=== PATIENT | female | born 1985 | race American Indian/Alaskan Native ===

== ENCOUNTER 2018-12-15 22:44 | Emergency (ER) | payer BC, OTHER ==
[2018-12-15 22:44] VITALS: BMI 18.8
--- NOTE | 2018-12-15 23:34 | ED PDOC ---
HPI: Female Pain Time Seen by Provider: 12/15/18 23:15 Chief Complaint (Nursing): Female Genitourinary Chief Complaint (Provider): dysuria History Per: Patient History/Exam Limitations: no limitations Onset/Duration Of Symptoms: Days (3) Current Symptoms Are (Timing): Still Present Quality Of Discomfort: Burning, "Pain" Associated Symptoms: Urinary Symptoms Additional Complaint(s): 33 y/o female presents for evaluation of dysuria x 3 days. Associated low back pain, hematuria yesterday. Denies fever, nausea/vomiting, vaginal bleeding/discharge. No medications taken for relief thus far Past Medical History Reviewed: Historical Data, Nursing Documentation, Vital Signs Vital Signs: Last Vital Signs Temp 98.6 F 12/15/18 22:52 Pulse 77 12/15/18 22:52 Resp 16 12/15/18 22:52 BP 130/84 12/15/18 22:52 Pulse Ox 98 12/15/18 22:52 - Medical History PMH: No Chronic Diseases - Surgical History Surgical History: No Surg Hx - Family History Family History: States: Unknown Family Hx - Immunization History Hx Tetanus Toxoid Vaccination: No Hx Influenza Vaccination: No Hx Pneumococcal Vaccination: No - Home Medications Home Medications: Ambulatory Orders Medication Instructions Recorded Acetaminophen/Butalbital/Caf 1 tab PO TID PRN #14 tab 11/14/16 [Fioricet] Ferrous Gluconate [Iron] 236 mg PO DAILY 11/14/16 Ciprofloxacin HCl [Cipro] 500 mg PO BID #13 tab 12/16/18 Phenazopyridine HCl [Pyridium] 100 mg PO TID PRN #5 tab 12/16/18 - Allergies Allergies/Adverse Reactions: Allergies Allergy/AdvReac Type Severity Reaction Status Date / Time No Known Allergies Allergy Verified 12/15/18 22:52 Review of Systems ROS Statement: Except As Marked, All Systems Reviewed And Found Negative Genitourinary Female: Positive for: Dysuria, Hematuria Physical Exam - Reviewed Nursing Documentation Reviewed: Yes Vital Signs Reviewed: Yes - Physical Exam Appears: Positive for: Well, Non-toxic, No Acute Distress Head Exam: Positive for: ATRAUMATIC, NORMAL INSPECTION, NORMOCEPHALIC Skin: Positive for: Normal Color Eye Exam: Positive for: Normal appearance ENT: Positive for: Normal ENT Inspection Cardiovascular/Chest: Positive for: Regular Rate, Rhythm Respiratory: Positive for: Normal Breath Sounds Gastrointestinal/Abdominal: Positive for: Bowel Sounds, Soft, Tenderness (suprapubic) Back: Positive for: Normal Inspection. Negative for: L CVA Tenderness, R CVA Tenderness Extremity: Positive for: Normal ROM Neurological/Psych: Positive for: Awake, Alert, Oriented (x3) - ECG O2 Sat by Pulse Oximetry: 98 - Progress ED Course And Treament: -upreg -udip -urinalysis -urine c&s Patient educated on findings, discharged with rx pyridium, cipro (doses given in ED) Advised increase fluid intake Follow up PMD within 2-3 days Return precautions given Disposition - Clinical Impression Clinical Impression: Urinary tract infection - Patient ED Disposition Is Patient to be Admitted: No Counseled Patient/Family Regarding: Studies Performed, Diagnosis, Need For Followup, Rx Given - Disposition Disposition: Routine/Home Disposition Time: 00:23 Condition: IMPROVED Prescriptions: Ciprofloxacin HCl [Cipro] 500 mg PO BID #13 tab Phenazopyridine HCl [Pyridium] 100 mg PO TID PRN #5 tab PRN Reason: Urinary Discomt Instructions: Urinary Tract Infections in Adults
[2018-12-15 23:49] LABS: SQUAMOUS EPITHIAL 4 /hpf (0-5); URINE BILIRUBIN NEGATIVE (NEGATIVE); URINE BLOOD LARGE (NEGATIVE); URINE CLARITY CLOUDY (Clear); URINE COLOR YELLOW (YELLOW); URINE GLUCOSE (UA) NEG (NEGATIVE); URINE LEUKOCYTE ESTERASE SMALL Leu/uL (Negative); URINE PROTEIN 30 mg/dL (NEGATIVE); URINE UROBILINOGEN 0.2-1.0 mg/dL (0.2-1.0)
[2018-12-16 01:40] VITALS: BP 108/75; PULSE 70; RESP 18; TEMP 98.3; O2SAT 100
== END 2018-12-16 01:05 | disposition home or self-care (01) ==
LOC: H.ER 22:44
DX: N39.0 Urinary tract infection, site not specified (principal)